=== PATIENT | male | born 1990 | race Two or more races ===

== ENCOUNTER 2018-05-07 12:49 | Emergency (ER) | payer BC ==
[~2018-05-07] VITALS: Ht 177.8 cm; Wt 94.3 kg
[2018-05-07] MEDS ORDERED: TETRACAINE HCL 0.5% OPTH SOLN 4 ML BTL OP ONE (13:30)
[2018-05-07] MEDS ORDERED: FLUORESCEIN SOD(OPTH) 1 MG STRP OP ONE (13:30)
== END 2018-05-07 13:52 | disposition home or self-care (01) ==
LOC: ER 12:49
DX: H57.11 Ocular pain, right eye (principal); H10.021 Other mucopurulent conjunctivitis, right eye
CPT/HCPCS: 99283